=== PATIENT | male | born 1940 | race Caucasian/White ===

== ENCOUNTER 2017-01-21 06:42 | Emergency (ER) | payer MEDICARE, BC ==
[2017-01-21] MEDS ORDERED: SODIUM CHLORIDE 0.9% 1000ML 2,000 ML IV ONE (06:45)
[2017-01-21 06:58] LABS: BASOPHILS % (AUTO) 1 % (0-3); EOSINOPHILS % (AUTO) 2 % (0-9); HEMATOCRIT 43 % (39-53); MEAN CORPUSCULAR HGB CONC 35.5 gm/dl (32.0-36.0); MEAN CORPUSCULAR VOLUME 87 fL (80-100); MONOCYTES % (AUTO) 6.8 % (0-12); NEUTROPHILS % (AUTO) 73.7 % (37-80)
[2017-01-21 07:25] LABS: ALBUMIN 3.5 gm/dl (3.4-5.0); CALCIUM 9.2 mg/dl (8.5-10.1); MAGNESIUM 1.7 mg/dl (1.8-2.4); POTASSIUM 3.5 mMol/L (3.5-5.1)
[2017-01-21] MEDS ORDERED: PANTOPRAZOLE SODIUM 40 MG/10 ML PDS IV ONE (07:43)
[2017-01-21] MEDS ORDERED: PANTOPRAZOLE SODIUM 40 MG/10 ML PDS ONE (07:44)
[2017-01-21] MEDS ORDERED: ONDANSETRON HCL 4 MG/2 ML SOL ONE (09:28)
[2017-01-21] MEDS ORDERED: HYDROMORPHONE 1 MG/ML SYRINGE ONE (09:28)
[2017-01-21 10:17] VITALS: TEMP 98.5
[2017-01-21 10:18] VITALS: BP 120/70; PULSE 60; RESP 19; O2SAT 97
== END 2017-01-21 09:19 | disposition home or self-care (01) | DRG 641 ==
LOC: ED 06:42
DX: E86.0 Dehydration (principal); I48.91 Unspecified atrial fibrillation; R19.7 Diarrhea, unspecified; R93.3 Abnormal findings on diagnostic imaging of other parts of digestive tract
CPT/HCPCS: 36415; 74020; 80053; 83735; 84100; 84484; 85025; 85610; 85730; 93005; 96365; 96366; 96374; 99284; 99285; J2405; J1170

== ENCOUNTER 2017-07-27 18:19 | Inpatient (IN) | payer MEDICARE, BC ==
[2017-07-27 20:07] LABS: BASOPHILS % (AUTO) 1 % (0-3); EOSINOPHILS % (AUTO) 1 % (0-9); HEMATOCRIT 40 % (39-53); MEAN CORPUSCULAR HGB CONC 34.2 gm/dl (32.0-36.0); MEAN CORPUSCULAR VOLUME 90 fL (80-100); MONOCYTES % (AUTO) 4.9 % (0-12); NEUTROPHILS % (AUTO) 73.1 % (37-80)
[2017-07-27 20:24] LABS: APPEARANCE,URINE Clear; BILIRUBIN,URINE NEGATIVE (NEGATIVE); COLOR,URINE Dark yellow; GLUCOSE, URINE (UA) NEGATIVE (NEGATIVE); KETONES,URINE TRACE (NEGATIVE); LEUKOCYTE ESTERASE ,URINE NEGATIVE (NEGATIVE); NITRATE,URINE NEGATIVE (NEGATIVE); OCCULT BLOOD,URINE NEGATIVE (NEG-TRACE); UROBILINOGEN,URINE 0.2 (0.2-1.0 EU)
[2017-07-27 20:27] LABS: ALBUMIN 3.4 gm/dl (3.4-5.0); CALCIUM 7.1 mg/dl (8.5-10.1); MAGNESIUM 0.3 mg/dl (1.8-2.4); POTASSIUM 3.6 mMol/L (3.5-5.1); THYROID STIMULATING HORMONE 2.374 uIU/ml (0.358-3.740)
[2017-07-27] MEDS ORDERED: MAGNESIUM SULFATE 1 GM/2 ML SOL IV ONE (20:31)
[2017-07-27] MEDS ORDERED: MAGNESIUM SULFATE 5 GM/10 ML SOL ONE (20:34)
[2017-07-27 20:36] LABS: RBC,URINE NEGATIVE (0-3AV/HPF); WBC,URINE 0-2 (0-5AV/HPF)
[2017-07-27] MEDS ORDERED: SODIUM CHLORIDE 0.9% FLUSH 10 ML SOL IV PRN (20:44)
[2017-07-27] MEDS ORDERED: SODIUM CHLORIDE 0.9% 1000ML 1,000 ML IV ONE (21:15)
[2017-07-28] MEDS ORDERED: MAGNESIUM SULFATE 1 GM/2 ML SOL IV ONE (03:45)
[2017-07-28 08:32] VITALS: BP 155/81; PULSE 94; RESP 18; TEMP 97; O2SAT 94
[2017-07-28] MEDS ORDERED: INFLUENZA HIGH DOSE VACCINE 0.5 ML SUS IM ONE (08:56)
[2017-07-28] MEDS ORDERED: MULTIVITAMIN2 1 EA TAB PO SCH (09:00)
[2017-07-28] MEDS ORDERED: PANTOPRAZOLE SODIUM 40 MG ECT PO SCH (09:00)
[2017-07-28] MEDS ORDERED: ASPIRIN EC 81 MG PO SCH (09:00)
[2017-07-28] MEDS ORDERED: HYDROCHLOROTHIAZIDE 25 MG TAB PO SCH (09:15)
[2017-07-28] MEDS ORDERED: LISINOPRIL 20 MG TAB PO SCH (09:15)
[2017-07-28 10:21] LABS: CALCIUM 7.5 mg/dl (8.5-10.1); POTASSIUM 3.8 mMol/L (3.5-5.1)
[2017-07-28] MEDS ORDERED: SIMVASTATIN 20 MG TAB PO SCH (21:00)
== END 2017-07-28 10:45 | disposition home or self-care (01) | DRG 641 ==
LOC: ED 18:19 → ACUTE CARE 20:44
PROVIDERS: ADMIT Emergency Medicine; ATTEND Emergency Medicine
DX: E83.42 Hypomagnesemia (principal); Z79.899 Other long term (current) drug therapy
CPT/HCPCS: 36415; 80048; 80053; 81001; 83735; 84100; 84443; 85025; 90662; 93005; 93012; 99221; 99284; J3475; G0008

== ENCOUNTER 2017-09-10 20:16 | Emergency (ER) | payer MEDICARE, BC ==
[2017-09-10] MEDS ORDERED: ONDANSETRON HCL 4 MG/2 ML SOL IV ONE (20:29)
[2017-09-10] MEDS ORDERED: PANTOPRAZOLE SODIUM 40 MG/10 ML PDS IV ONE (20:29)
[2017-09-10] MEDS ORDERED: SODIUM CHLORIDE 0.9% 1000ML 1,000 ML IV ONE (20:29)
[2017-09-10] MEDS ORDERED: FAMOTIDINE 10 MG/ML SOL IV ONE (20:32)
[2017-09-10 20:41] LABS: BASOPHILS % (AUTO) 1 % (0-3); EOSINOPHILS % (AUTO) 0 % (0-9); HEMATOCRIT 48 % (39-53); MEAN CORPUSCULAR HGB CONC 34.5 gm/dl (32.0-36.0); MEAN CORPUSCULAR VOLUME 90 fL (80-100); MONOCYTES % (AUTO) 6.6 % (0-12); NEUTROPHILS % (AUTO) 75.3 % (37-80)
[2017-09-10] MEDS ORDERED: ONDANSETRON HCL 4 MG/2 ML SOL ONE (20:41)
[2017-09-10] MEDS ORDERED: PANTOPRAZOLE SODIUM 40 MG/10 ML PDS ONE (20:41)
[2017-09-10 20:53] LABS: ALBUMIN 3.9 gm/dl (3.4-5.0); POTASSIUM 3.7 mMol/L (3.5-5.1)
[2017-09-10] MEDS ORDERED: MAGNESIUM SULFATE 5 GM/10 ML SOL IV ONE (20:56)
[2017-09-10] MEDS ORDERED: MORPHINE SULFATE 10 MG/ML SOL IV ONE (20:57)
[2017-09-10] MEDS ORDERED: RANITIDINE HYDROCHLORIDE 25 MG/ML SOL ONE (21:30)
[2017-09-10] MEDS ORDERED: RANITIDINE HYDROCHLORIDE 25 MG/ML SOL IV ONE (21:31)
[2017-09-10] MEDS ORDERED: MAGNESIUM SULFATE 5 GM/10 ML SOL ONE (21:44)
[2017-09-11 00:06] LABS: APPEARANCE,URINE Clear; BILIRUBIN,URINE NEGATIVE (NEGATIVE); COLOR,URINE Yellow; GLUCOSE, URINE (UA) NEGATIVE (NEGATIVE); KETONES,URINE 1+ (NEGATIVE); LEUKOCYTE ESTERASE ,URINE NEGATIVE (NEGATIVE); NITRATE,URINE NEGATIVE (NEGATIVE); OCCULT BLOOD,URINE TRACE INTACT (NEG-TRACE); UROBILINOGEN,URINE 0.2 (0.2-1.0 EU)
[2017-09-11 00:15] LABS: RBC,URINE 0-1 (0-3AV/HPF); WBC,URINE 0-1 (0-5AV/HPF)
[2017-09-11 03:44] VITALS: PULSE 60
[2017-09-11 03:52] VITALS: TEMP 97
[2017-09-11 03:55] VITALS: BP 123/64; RESP 18; O2SAT 93
== END 2017-09-11 00:15 | disposition home or self-care (01) | DRG 382 ==
LOC: ED 20:16
DX: E16.4 Increased secretion of gastrin (principal)
CPT/HCPCS: 74177; 80053; 81001; 83735; 85025; 96365; 96366; 96374; 96375; 99284; 99285; J2405; J2780; J3475; Q9967; S0028

== ENCOUNTER 2018-09-20 01:18 | Emergency (ER) | payer MEDICARE, BC ==
[2018-09-20] MEDS ORDERED: SODIUM CHLORIDE 0.9% FLUSH 10 ML SOL IV PRN ×2 (01:35→01:53)
[2018-09-20] MEDS ORDERED: LABETALOL HYDROCHLORIDE 5 MG/ML SOL IV ONE ×2 (01:35→01:36)
[2018-09-20] MEDS ORDERED: ALTEPLASE, RECOMBINANT 50 MG PDS IV ONE ×3 (01:44→01:55)
[2018-09-20 01:57] LABS: BASOPHILS % (AUTO) 1 % (0-3); EOSINOPHILS % (AUTO) 2 % (0-9); HEMATOCRIT 45 % (39-53); HEMOGLOBIN 14.7 gm/dl (13.5-17.7); LYMPHOCYTES % (AUTO) 40.1 % (10-50); MEAN CORPUSCULAR HEMOGLOBIN 30.8 pg (27.0-32.0); MEAN CORPUSCULAR HGB CONC 32.6 gm/dl (32.0-36.0); MEAN CORPUSCULAR VOLUME 94 fL (80-100); NEUTROPHILS % (AUTO) 48.7 % (37-80)
[2018-09-20 01:58] LABS: INR 0.97 (0.86-1.12)
[2018-09-20] MEDS ORDERED: SODIUM CHLORIDE 0.9% 1000ML 1,000 ML IV ONE (02:04)
[2018-09-20 02:09] LABS: BLOOD UREA NITROGEN 26 mg/dl (7-18); CALCIUM 8.9 mg/dl (8.5-10.1); CARBON DIOXIDE 32.6 mEq/L (21-32); CHLORIDE 105 mMol/L (98-107); CREATININE 1.43 mg/dl (0.80-1.30); GLUCOSE 106 mg/dl (74-106); POTASSIUM 4.1 mMol/L (3.5-5.1); SODIUM 144 mMol/L (136-145); TROP I < 0.017 ng/ml (0.000-0.056)
[2018-09-20 02:20] VITALS: BP 181/110; PULSE 60; RESP 18; TEMP 97.2; O2SAT 99
== END 2018-09-20 02:11 | disposition short-term general hospital (02) | DRG 66 ==
LOC: ED 01:18
DX: I63.9 Cerebral infarction, unspecified (principal); I10 Essential (primary) hypertension; E16.4 Increased secretion of gastrin; R53.1 Weakness; R29.810 Facial weakness; I48.91 Unspecified atrial fibrillation; Z79.01 Long term (current) use of anticoagulants; Z95.0 Presence of cardiac pacemaker; R29.706 NIHSS score 6; R40.2362 Coma scale, best motor response, obeys commands, at arrival to emergency department; R40.2142 Coma scale, eyes open, spontaneous, at arrival to emergency department; R40.2252 Coma scale, best verbal response, oriented, at arrival to emergency department; W19.XXXA Unspecified fall, initial encounter
CPT/HCPCS: 70450; 80048; 84484; 85025; 85610; 85730; 93005; 96365; 96374; 96375; 99291; J2997; J3490

== ENCOUNTER 2018-11-15 07:20 | Day surgery (SDC) | payer MEDICARE, BC ==
[2018-11-15] MEDS ORDERED: FENTANYL 100MCG/2ML SOL ONE (07:24)
[2018-11-15] MEDS ORDERED: MIDAZOLAM 2 MG/2 ML SOL ONE (07:24)
[2018-11-15] MEDS ORDERED: ACETAZOLAMIDE 250 MG PO ONE (07:35)
[2018-11-15] MEDS: PHENYLEPHRINE HCL 10% OPHTHAL SOL ONE ×2 (07:46→07:59)
[2018-11-15] MEDS: TETRACAINE HCL 0.5 % 1 DROP SOL RIGHTEYE ONE ×3 (07:46→09:01)
[2018-11-15] MEDS: KETOROLAC 0.5% OPTH 60 DROP SOL ONE ×2 (07:47→08:00)
[2018-11-15] MEDS: CYCLOPENTOLATE 1% SOL ONE ×2 (07:47→08:00)
[2018-11-15] MEDS ORDERED: BSS 500 ML 500 ML IR ONE (08:56)
[2018-11-15] MEDS ORDERED: POVIDONE IODINE 5% SOL ONE (08:56)
[2018-11-15] MEDS ORDERED: LIDOCAINE HCL 1% MPF 30 SOL ONE (08:56)
[2018-11-15] MEDS: IMPRIMIS ONE ×2 (09:09→09:18)
[2018-11-15 09:25] VITALS: BP 141/90; PULSE 62; RESP 20; TEMP 95.3; O2SAT 94
== END 2018-11-15 09:48 | disposition home or self-care (01) | DRG 125 ==
LOC: SURG 07:20
PROVIDERS: ATTEND Ophthalmology
DX: H25.89 Other age-related cataract (principal)
CPT/HCPCS: J2250; J3010; A9270-GY; J2001